=== PATIENT | female | born 1945 ===

== ENCOUNTER 2022-02-20 09:45 | Inpatient (IN) | payer OTHER ==
[~2022-02-20] VITALS: Ht 160 cm; Wt 73.9 kg
[2022-02-20] MEDS ORDERED: GABAPENTIN300 M2 PO (12:43)
[2022-02-20] MEDS ORDERED: COZAAR100 MG PO (12:43)
[2022-02-20] MEDS ORDERED: FENOFIBRATE160 MG PO (12:44)
[2022-02-20] MEDS ORDERED: DICLOFENAC SODI50 MG PO (12:44)
[2022-02-20] MEDS ORDERED: NORVASC5 MG PO (12:45)
[2022-02-20] MEDS ORDERED: LIPITOR40 MG PO (12:45)
[2022-02-20] MEDS ORDERED: FOLIC ACID0.8 M1 PO (12:45)
[2022-02-20] MEDS ORDERED: B12 ACTIVE1000 MCG PO (12:46)
[2022-02-20] MEDS ORDERED: TANDEM DUAL AC106 MG PO (12:46)
[2022-02-27] MEDS ORDERED: ELIQUIS2.5 MG PO (14:52)
[2022-02-27] MEDS ORDERED: CEFADROXIL500 MG PO (14:52)
[2022-02-27] MEDS ORDERED: PERCOCET 5-3251 EACH PO (14:52)
== END 2022-02-27 15:37 | DRG 470 ==
LOC: O/R 02-24 06:25 → SURG 02-24 06:25 → SURH 02-24 07:00 → SURG 02-24 13:00
PROVIDERS: ADMIT Orthopaedic Surgery; ATTEND Orthopaedic Surgery
PROC: 0SRC0J9 Replacement of Right Knee Joint with Synthetic Substitute, Cemented, Open Approach (ICD-10-PCS; principal; 2022-02-24 07:00)
DX: M17.11 Unilateral primary osteoarthritis, right knee (principal); D62 Acute posthemorrhagic anemia; M22.11 Recurrent subluxation of patella, right knee; I10 Essential (primary) hypertension